=== PATIENT | female | born 1935 | race Caucasian/White ===

== ENCOUNTER 2018-04-22 17:05 | Observation (INO) | payer MEDICARE, BC ==
[~2018-04-22] VITALS: Ht 162.6 cm; Wt 56.4 kg
[~2018-04-22 17:05] MED LIST: ADVIL200 MG PO; ANTIVERT12.5 MG PO; ASPIRIN LOW DOS81 M2 PO; AUGMENTIN500TAB PO; AUGMENTIN875TAB OR; B COMPLE4 PO; CALCI17 PO; CALTRATE 600 PO; CHERATUSSIN OR; CIPROFLOXACN500 MG PO; COQ-10100 M1 PO; FISH OIL1000 MG PO; FLEXERIL PO; FLEXERIL5 M1 PO; FLUZONE SPLT1 M1 IM; IBUPROFEN600 MG PO; LEVAQUIN500 MG PO; Levaquin OR; MEDDOSEPAK PO; TESSALON200 MG PO; TYLENOL # 31 TA1 PO; VITAMIN B-12500 MCG PO; VITAMIN B-125000 MCG SL
[2018-04-22 18:47] LABS: HEMATOCRIT 42.9 % (37.0-47.0); HEMOGLOBIN 14.2 g/dl (12.0-16.0); IMMATURE GRANULOCYTES 0.4 % (0.0-5.0); MEAN CELL VOLUME 96.2 fL CALC (80.0-100.0); MEAN CORPUSCULAR HGB 31.8 pG CALC (26.0-32.0); MEAN CORPUSCULAR HGB CONC 33.1 g/L CALC (32.0-36.0); NEUT# 4.74 thou/uL (2.00-7.15); RED BLOOD COUNT 4.46 mill/uL (4.20-5.60); RED CELL DISTRI WIDTH 13.5 % (11.5-15.5)
[2018-04-22 18:52] LABS: ANION GAP 12 (6-22 (CALC)); BUN 15 mg/dL (8-23); BUN/CREATININE RATIO 27 (12-20 (CALC)); CARBON DIOXIDE 30 mmol/l (22-30); CHLORIDE 105 mmol/l (95-108); CREATININE 0.5 mg/dL (0.5-1.0); GFR > 60 ML/MIN (>=60 (CALC)); GFR FOR AFR.AMER. > 60 ML/MIN (>=60 (CALC)); POTASSIUM 3.9 mmol/l (3.5-5.1); SODIUM 143 mmol/l (137-146)
[2018-04-22 21:50] VITALS: BP 174/79
[2018-04-23 00:45] VITALS: BP 165/73
[2018-04-23 05:25] VITALS: BP 175/82
[2018-04-23 05:35] LABS: HEMOGLOBIN 14.7 g/dl (12.0-16.0); IMMATURE GRANULOCYTES 0.3 % (0.0-5.0); MEAN CELL VOLUME 95.7 fL CALC (80.0-100.0); MEAN CORPUSCULAR HGB CONC 33.4 g/L CALC (32.0-36.0); NEUT# 4.42 thou/uL (2.00-7.15); RED BLOOD COUNT 4.6 mill/uL (4.20-5.60); RED CELL DISTRI WIDTH 13.4 % (11.5-15.5)
[2018-04-23 06:04] LABS: ALBUMIN 4.3 g/dL (3.2-5.0); ALKALINE PHOSPHATASE 117 u/l (38-126); ANION GAP 12 (6-22 (CALC)); BILIRUBIN, TOTAL 1.1 mg/dL (0.0-1.4); BUN 12 mg/dL (8-23); BUN/CREATININE RATIO 19 (12-20 (CALC)); CARBON DIOXIDE 31 mmol/l (22-30); CHLORIDE 104 mmol/l (95-108); CREATININE 0.6 mg/dL (0.5-1.0); GFR > 60 ML/MIN (>=60 (CALC)); GFR FOR AFR.AMER. > 60 ML/MIN (>=60 (CALC)); POTASSIUM 3.7 mmol/l (3.5-5.1); SGOT/AST 56 u/l (9-36); SODIUM 144 mmol/l (137-146)
[2018-04-23 09:10] VITALS: BP 125/67
[2018-04-23 16:00] VITALS: BP 134/60
[2018-04-23] MEDS ORDERED: IBUPROFEN600 MG PO (17:55)
[2018-04-23] MEDS ORDERED: SURFAK240 MG/CAP PO (17:56)
== END 2018-04-23 18:12 | disposition home or self-care (01) ==
LOC: ED 17:05 → ED-I 18:20 → ED 20:57 → MS2 20:58
PROVIDERS: Family Medicine; ADMIT Internal Medicine Geriatric Medicine; ATTEND Internal Medicine Geriatric Medicine
DX: S32.502A Unspecified fracture of left pubis, initial encounter for closed fracture (principal); I10 Essential (primary) hypertension; I25.10 Atherosclerotic heart disease of native coronary artery without angina pectoris; M06.9 Rheumatoid arthritis, unspecified; M15.9 Polyosteoarthritis, unspecified; W01.0XXA Fall on same level from slipping, tripping and stumbling without subsequent striking against object, initial encounter; Y92.009 Unspecified place in unspecified non-institutional (private) residence as the place of occurrence of the external cause; Z90.710 Acquired absence of both cervix and uterus

== ENCOUNTER → 2018-08-15 | Outpatient (REF) | payer MEDICARE, BC ==
[~2018-08-15] MED LIST changes: +SURFAK240 MG/CAP PO
== END | disposition home or self-care (01) ==
LOC: MAMMO 09:12
PROVIDERS: ATTEND Internal Medicine Geriatric Medicine
DX: Z12.31 Encounter for screening mammogram for malignant neoplasm of breast (principal)

== ENCOUNTER 2019-10-16 09:49 | Emergency (ER) | payer MEDICARE, BC ==
[2019-10-16 10:31] LABS: URINE BILIRUBIN - DIPSTICK NEGATIVE (NEGATIVE); URINE BLOOD DIPSTICK NEGATIVE (NEGATIVE); URINE COLOR YELLOW; URINE GLUCOSE - DIPSTICK NEGATIVE (NEGATIVE); URINE KETONE NEGATIVE (NEGATIVE); URINE NITRITE - DIPSTICK NEGATIVE (Negative); URINE PH 6.5 (4.5-8.0); URINE PROTEIN - DIPSTICK NEGATIVE (NEG-TRACE); URINE SPECIFIC GRAVITY 1.015; URINE UROBILINOGEN - DIPSTICK 0.2 E.U./dL (0.2)
[2019-10-16 10:43] LABS: URINE LEUK ESTERASE SMALL (NEGATIVE)
[2019-10-16 10:46] LABS: INTERNATIONAL NORMALIZED RATIO 1.1 RATIO (0.7-1.3); PROTHROMBIN TIME 11.4 SECONDS (9.0-12.5)
[2019-10-16 10:47] LABS: IMMATURE GRANULOCYTES 0.3 % (0.0-5.0); MEAN CORPUSCULAR HGB 28.4 pG CALC (26.0-32.0); MEAN CORPUSCULAR HGB CONC 32.1 g/dL CAL (32.0-36.0); NEUT# 4.16 thou/uL (2.00-7.15); RED BLOOD COUNT 3.38 mill/uL (4.20-5.60); RED CELL DISTRI WIDTH 17.3 % (11.5-15.5)
[2019-10-16 10:53] LABS: URINE MUCUS FEW hpf (NONE-FEW); URINE RBC 0-2 RBC/hpf (0-5); URINE SQUAMOUS EPITHELIAL CELL FEW EPI/hpf (0-FEW)
[2019-10-16 10:54] LABS: HEMATOCRIT 29.9 % (37.0-47.0); HEMOGLOBIN 9.6 g/dl (12.0-16.0); MEAN CELL VOLUME 88.5 fL CALC (80.0-100.0)
[2019-10-16 10:56] LABS: ALKALINE PHOSPHATASE 89 u/l (38-126); AMYLASE 63 u/l (30-110); ANION GAP 6 (6-22 (CALC)); BUN 24 mg/dL (8-23); BUN/CREATININE RATIO 39 (12-20 (CALC)); CARBON DIOXIDE 33 mmol/l (22-30); CHLORIDE 105 mmol/l (95-108); CREATININE 0.6 mg/dL (0.5-1.0); GFR > 60 ML/MIN (>=60 (CALC)); GFR FOR AFR.AMER. > 60 ML/MIN (>=60 (CALC)); LIPASE 358 u/l (23-300); POTASSIUM 3.8 mmol/l (3.5-5.1); SGOT/AST 38 u/l (9-36); SODIUM 140 mmol/l (137-146); TOTAL PROTEIN 7.1 g/dL (6.3-8.2)
[2019-10-16 10:58] LABS: ALBUMIN 3.7 g/dL (3.2-5.0); BILIRUBIN, TOTAL 0.5 mg/dL (0.0-1.4)
[2019-10-16 11:08] LABS: MYOGLOBIN 43 ng/mL (0 - 62)
[2019-10-16 13:22] VITALS: BP 149/70
== END 2019-10-16 13:20 | disposition short-term general hospital (02) ==
LOC: ED 09:49
PROVIDERS: Emergency Medicine
DX: K92.0 Hematemesis (principal); N39.0 Urinary tract infection, site not specified
CPT/HCPCS: Q9967; S0164

== ENCOUNTER 2022-02-17 14:06 | Emergency (ER) | payer MEDICARE, BC ==
[~2022-02-17] VITALS: Ht 160 cm; Wt 51.8 kg
[2022-02-17 14:58] LABS: HEMOGLOBIN 10.8 g/dl (12.0-16.0); IMMATURE GRANULOCYTES 0.3 % (0.0-5.0); MEAN CELL VOLUME 96.2 fL CALC (80.0-100.0); MEAN CORPUSCULAR HGB 31.5 pG CALC (26.0-32.0); MEAN CORPUSCULAR HGB CONC 32.7 g/dL CAL (32.0-36.0); NEUT# 10.15 thou/uL (2.00-7.15); RED BLOOD COUNT 3.43 mill/uL (4.20-5.60); RED CELL DISTRI WIDTH 15.8 % (11.5-15.5)
[2022-02-17 15:07] LABS: ALBUMIN 3.9 g/dL (3.2-5.0); ANION GAP 11 (6-22 (CALC)); BUN 15 mg/dL (8-23); BUN/CREATININE RATIO 27 (12-20 (CALC)); CARBON DIOXIDE 28 mmol/l (22-30); CHLORIDE 101 mmol/l (95-108); CREATININE 0.6 mg/dL (0.5-1.0); GFR FOR AFR.AMER. > 60 ML/MIN (>=60 (CALC)); GFR OTHER RACES > 60 ML/MIN (>=60 (CALC)); POTASSIUM 3.7 mmol/l (3.5-5.1); SODIUM 136 mmol/l (137-146); TOTAL PROTEIN 7.4 g/dL (6.3-8.2)
[2022-02-17 15:08] LABS: ALKALINE PHOSPHATASE 155 u/l (38-126); BILIRUBIN, TOTAL 1.6 mg/dL (0.0-1.4); SGOT/AST 75 u/l (9-36)
[2022-02-17 15:19] LABS: MYOGLOBIN 356 ng/mL (0 - 62)
[2022-02-17 16:42] LABS: URINE BILIRUBIN - DIPSTICK NEGATIVE (NEGATIVE); URINE BLOOD DIPSTICK TRACE-INTACT (NEGATIVE); URINE COLOR YELLOW; URINE GLUCOSE - DIPSTICK NEGATIVE (NEGATIVE); URINE KETONE NEGATIVE (NEGATIVE); URINE PROTEIN - DIPSTICK NEGATIVE (NEG-TRACE); URINE UROBILINOGEN - DIPSTICK 0.2 E.U./dL (0.2)
[2022-02-17 16:43] LABS: URINE LEUK ESTERASE SMALL (NEGATIVE); URINE NITRITE - DIPSTICK POSITIVE (Negative)
[2022-02-17 16:45] LABS: URINE BACTERIA MANY hpf; URINE RBC 0-2 RBC/hpf (0-5); URINE SQUAMOUS EPITHELIAL CELL FEW EPI/hpf (0-FEW)
[2022-02-17] MEDS ORDERED: KEFLEX500 MG PO (17:31)
[2022-02-17] MEDS ORDERED: NAPROXEN500 MG PO (17:31)
[2022-02-17 18:20] VITALS: BP 163/79
== END 2022-02-17 18:21 | disposition home or self-care (01) ==
LOC: ED 14:06
PROVIDERS: Emergency Medicine
DX: S33.5XXA Sprain of ligaments of lumbar spine, initial encounter (principal); S23.3XXA Sprain of ligaments of thoracic spine, initial encounter; R07.89 Other chest pain; N39.0 Urinary tract infection, site not specified; B96.20 Unspecified Escherichia coli [E. coli] as the cause of diseases classified elsewhere; W01.0XXA Fall on same level from slipping, tripping and stumbling without subsequent striking against object, initial encounter; Y93.E1 Activity, personal bathing and showering; Y92.002 Bathroom of unspecified non-institutional (private) residence as the place of occurrence of the external cause; Z20.822 Contact with and (suspected) exposure to COVID-19

== ENCOUNTER 2022-03-25 19:58 | Emergency (ER) | payer MEDICARE, BC ==
[~2022-03-25] VITALS: Ht 160 cm; Wt 59.0 kg
[~2022-03-25 19:58] MED LIST changes: +KEFLEX500 MG PO; +NAPROXEN500 MG PO
[2022-03-25] MEDS ORDERED: VITAMIN (20:50)
[2022-03-25] MEDS ORDERED: TRAMA (20:50)
[2022-03-25 21:15] LABS: HEMATOCRIT 31.8 % (37.0-47.0); HEMOGLOBIN 10.1 g/dl (12.0-16.0); MEAN CORPUSCULAR HGB 31.8 pG CALC (26.0-32.0); MEAN CORPUSCULAR HGB CONC 31.8 g/dL CAL (32.0-36.0); NEUT# 2.75 thou/uL (2.00-7.15); RED BLOOD COUNT 3.18 mill/uL (4.20-5.60); RED CELL DISTRI WIDTH 15.3 % (11.5-15.5)
[2022-03-25 21:28] LABS: ALBUMIN 3.9 g/dL (3.2-5.0); ANION GAP 10 (6-22 (CALC)); BUN 10 mg/dL (8-23); BUN/CREATININE RATIO 14 (12-20 (CALC)); CARBON DIOXIDE 31 mmol/l (22-30); CHLORIDE 106 mmol/l (95-108); CREATININE 0.7 mg/dL (0.5-1.0); GFR FOR AFR.AMER. > 60 ML/MIN (>=60 (CALC)); GFR OTHER RACES > 60 ML/MIN (>=60 (CALC)); POTASSIUM 3.5 mmol/l (3.5-5.1); SGOT/AST 64 u/l (9-36); SODIUM 142 mmol/l (137-146); TOTAL PROTEIN 7.6 g/dL (6.3-8.2)
[2022-03-25 21:32] LABS: ALKALINE PHOSPHATASE 233 u/l (38-126); BILIRUBIN, TOTAL 0.9 mg/dL (0.0-1.4)
[2022-03-25] MEDS ORDERED: AMOXICILLIN500 MG PO (22:04)
[2022-03-25] MEDS ORDERED: ULTRAM50 M1 PO (22:04)
[2022-03-25 22:13] VITALS: BP 176/77
== END 2022-03-25 22:39 | disposition home or self-care (01) ==
LOC: ED 19:58
PROVIDERS: Emergency Medicine
PROC: 0H9KXZZ Drainage of Right Lower Leg Skin, External Approach (ICD-10-PCS; principal; 2022-03-25)
DX: S80.11XA Contusion of right lower leg, initial encounter (principal); W20.8XXA Other cause of strike by thrown, projected or falling object, initial encounter

== ENCOUNTER 2022-03-26 19:46 | Emergency (ER) | payer MEDICARE, BC ==
[~2022-03-26] VITALS: Ht 160 cm; Wt 51.0 kg
[~2022-03-26 19:46] MED LIST changes: +AMOXICILLIN500 MG PO; +TRAMA; +ULTRAM50 M1 PO; +VITAMIN
[2022-03-26 20:02] VITALS: BP 163/70
== END 2022-03-26 21:04 | disposition home or self-care (01) ==
LOC: ED 19:46
DX: S80.11XD Contusion of right lower leg, subsequent encounter (principal); X58.XXXD Exposure to other specified factors, subsequent encounter

== ENCOUNTER 2022-03-28 10:23 | Emergency (ER) | payer MEDICARE, BC | END 2022-03-28 12:15 | disposition left against medical advice (07) | LOC: ED 10:23 → LWOBS 12:15 | DX: Z53.21 Procedure and treatment not carried out due to patient leaving prior to being seen by health care provider (principal) ==

== ENCOUNTER 2022-09-02 08:14 | Emergency (ER) | payer MEDICARE, BC ==
[~2022-09-02] VITALS: Ht 160 cm; Wt 51.8 kg
[2022-09-02] VITALS (9 sets, daily range): BP systolic 162–181; BP diastolic 78–121
[2022-09-02 08:50] LABS: BASO% 0.1 % (0-3); EOS% 0.4 % (0-8); HEMATOCRIT 34.1 % (37.0-47.0); HEMOGLOBIN 11.1 g/dl (12.0-16.0); IMMATURE GRANULOCYTES 0.1 % (0.0-5.0); LYMPH% 24.2 % (15-41); MEAN CELL VOLUME 81.4 fL CALC (80.0-100.0); MEAN CORPUSCULAR HGB 26.5 pG CALC (26.0-32.0); MEAN CORPUSCULAR HGB CONC 32.6 g/dL CAL (32.0-36.0); MONO% 10.1 % (2-13); NEUT# 4.81 thou/uL (2.00-7.15); NEUT% 65.1 % (42-76); RED BLOOD COUNT 4.19 mill/uL (4.20-5.60); RED CELL DISTRI WIDTH 20.3 % (11.5-15.5)
[2022-09-02 09:03] LABS: ANION GAP 13 (6-22 (CALC)); BUN 16 mg/dL (8-23); BUN/CREATININE RATIO 27 (12-20 (CALC)); CARBON DIOXIDE 25 mmol/l (22-30); CHLORIDE 104 mmol/l (95-108); CREATININE 0.6 mg/dL (0.5-1.0); GFR FOR AFR.AMER. > 60 ML/MIN (>=60 (CALC)); GFR OTHER RACES > 60 ML/MIN (>=60 (CALC)); POTASSIUM 3.8 mmol/l (3.5-5.1); SGOT/AST 83 u/l (9-36); SODIUM 138 mmol/l (137-146); TOTAL PROTEIN 7.9 g/dL (6.3-8.2)
[2022-09-02 09:05] LABS: ALKALINE PHOSPHATASE 272 u/l (38-126); BILIRUBIN, TOTAL 1.7 mg/dL (0.02-1.3)
[2022-09-02 10:03] LABS: URINE BILIRUBIN - DIPSTICK NEGATIVE (NEGATIVE); URINE BLOOD DIPSTICK TRACE-LYSED (NEGATIVE); URINE COLOR YELLOW; URINE GLUCOSE - DIPSTICK NEGATIVE (NEGATIVE); URINE KETONE NEGATIVE (NEGATIVE); URINE LEUK ESTERASE NEGATIVE (NEGATIVE); URINE PH 7.5 (4.5-8.0); URINE PROTEIN - DIPSTICK NEGATIVE (NEG-TRACE); URINE SPECIFIC GRAVITY 1.015; URINE UROBILINOGEN - DIPSTICK 0.2 E.U./dL (0.2)
[2022-09-02 10:05] LABS: URINE NITRITE - DIPSTICK NEGATIVE (Negative)
[2022-09-02] MEDS ORDERED: MECLIZINE25 M1 PO (10:22)
== END 2022-09-02 10:44 | disposition home or self-care (01) ==
LOC: ED 08:14
PROVIDERS: Family Medicine
DX: R42 Dizziness and giddiness (principal)

== ENCOUNTER 2022-09-11 09:52 | Emergency (ER) | payer MEDICARE, BC ==
[~2022-09-11] VITALS: Ht 160 cm; Wt 54.0 kg
[~2022-09-11 09:52] MED LIST changes: +MECLIZINE25 M1 PO
[2022-09-11 10:02] VITALS: BP 127/62
[2022-09-11 11:00] VITALS: BP 132/61
[2022-09-11 11:04] VITALS: BP 132/61
[2022-09-11] MEDS ORDERED: TAM75CAP PO (11:27)
[2022-09-15] MEDS ORDERED: PROTONIX20 M1 PO (14:20)
== END 2022-09-11 11:53 | disposition home or self-care (01) ==
LOC: ED 09:52
DX: J10.1 Influenza due to other identified influenza virus with other respiratory manifestations (principal); Z20.822 Contact with and (suspected) exposure to COVID-19